=== PATIENT | female | born 1990 | race Caucasian/White ===

== ENCOUNTER → 2019-12-10 | Outpatient (CLI) | payer BC | LOC: LAB 10:24 | DX: R50.9 Fever, unspecified (principal); R51 Headache; R53.83 Other fatigue; R19.7 Diarrhea, unspecified; R09.81 Nasal congestion; Z20.828 Contact with and (suspected) exposure to other viral communicable diseases ==

== ENCOUNTER → 2020-09-16 | Outpatient (CLI) | payer BC | LOC: RAD 15:28 | DX: M54.2 Cervicalgia (principal); M79.601 Pain in right arm | CPT/HCPCS: A9585 ==

== ENCOUNTER 2021-11-17 11:11 | Emergency (ER) | payer SELFPAY ==
[2021-11-17 11:17] VITALS: BP 118/100
[2021-11-17 11:55] LABS: BASO # 0.03 K/mm3 (0.02-0.10); EOS # 0.07 K/mm3 (0.04-0.40); EOS % 0.9 % (1.0-5.0); HEMATOCRIT 41.7 % (37.0-47.0); HEMOGLOBIN 13.6 g/dL (12.5-16.0); LYMPH# 1.35 K/mm3 (1.50-4.00); MEAN CELL VOLUME 92 fl (78-100); MEAN CORPUSCULAR HEMOGLOBIN 30 pg (27-31); MEAN CORPUSCULAR HGB CONC 33 g/dL (33-37); MEAN PLATELET VOLUME 9.4 fl (7.4-10.4); MONO # 0.66 K/mm3 (0.20-0.80); NEU # 5.49 K/mm3 (1.40-6.50); PLATELET COUNT 284 K/mm3 (130-400); RED BLOOD COUNT 4.54 M/mm3 (4.10-5.30); RED CELL DISTRIBUTION WIDTH 12.1 % (11.5-14.5); WHITE BLOOD COUNT 7.6 K/mm3 (4.8-10.8)
[2021-11-17 12:11] LABS: ALBUMIN 3.9 g/dL (3.5-5.0); POTASSIUM 3.9 mmol/L (3.5-5.1)
[2021-11-17 12:13] LABS: CALCIUM 9.4 mg/dL (8.3-10.5)
[2021-11-17 12:14] LABS: TOTAL PROTEIN 7.1 g/dL (6.4-8.3)
[2021-11-17 12:16] LABS: TOTAL BILIRUBIN 0.3 mg/dL (0.2-1.2)
[2021-11-17] MEDS ORDERED: PREDNISONE20 MG PO (13:04)
[2021-11-17] MEDS ORDERED: AMOXICILLIN875 MG PO (13:04)
== END 2021-11-17 13:10 | disposition home or self-care (01) ==
LOC: ED 11:11
PROVIDERS: Physician Assistant
DX: K08.89 Other specified disorders of teeth and supporting structures (principal); R59.0 Localized enlarged lymph nodes; F17.200 Nicotine dependence, unspecified, uncomplicated; Z28.311 Partially vaccinated for COVID-19
CPT/HCPCS: J1885